=== PATIENT | female | born 1960 | race Caucasian/White ===

== ENCOUNTER → 2016-12-07 | Outpatient (CLI) | payer OTHER ==
--- NOTE | 2016-12-07 16:12 | KCIC ---
Examination: MRI of the right wrist and right hand HISTORY: History of progressing the right hand, wrist pain unable to straighten her due to arthritis COMPARISON: None available TECHNIQUE: Multiplanar, multisequence MR images of the right hand and right wrist was performed FINDINGS: The visualized flexor tendons, extensor tendons grossly appears unremarkable. The median nerve within the carpal tunnel and the ulnar nerve within Guyon's canal grossly appears unremarkable. There is mild bony fusion of the lunate and triquetrum. The alignment of the carpal bones grossly appears unremarkable. Severe degenerative changes identified in the first carpometacarpal joint with moderate associated osteophyte formation. Small cystic changes identified in the capitate, hamate bones dorsal osteophyte formation identified at lunate, capitate region. Moderate degenerative changes identified in the carpal joints Mild trabecular edema identified in the trapezium. The triangular fibrocartilage complex appears intact. There is minimal increased signal identified in the anterior portion of the scapholunate ligament, question age indeterminate. There is severe joint space loss identified in the second metacarpophalangeal joint with subchondral cystic changes. There is moderate to severe degenerative changes identified in the third metacarpophalangeal joints. Moderate size osteophyte formation identified in the second and third metacarpal heads. Mild joint space loss identified in the PIP, DIP joints of the digits. IMPRESSION: 1. Small osteophytes identified in the radial aspect of the head of the second and third metacarpals with severe joint space loss and degenerative changes identified at the second metacarpophalangeal joint and moderate degenerative changes identified at the third metacarpophalangeal joint. Differential includes severe osteoarthritis, other possibilities include hook like osteophytes seen in CPPD arthropathy or hemochromatosis arthropathy. Plain film radiographs are recommended. 2. Moderate degenerative changes identified in the first carpometacarpal joint and intercarpal joints. 3. Minimal increased signal identified in the anterior portion of the scapholunate ligament could be age indeterminate. If there is clinical suspicion of scapholunate ligament tear. Consider MR arthrogram. Electronically signed by: Goran Cullen MD (12/07/2016 4:09 PM) [id number]
--- NOTE | 2016-12-07 17:28 | KCIC ---
MRI of the lumbar spine without contrast 12/07/2016 CLINICAL HISTORY: Low back pain which radiates down both legs with numbness. TECHNIQUE: Unenhanced T1-weighted and T2-weighted sagittal and axial and inversion recovery sagittal images of the lumbar spine were obtained. FINDINGS: Minimal S-shaped curvature of the thoracolumbar spine is seen. Mild anterolisthesis of L4 in relation to L5 is noted. Degenerative signal changes are seen involving the L2-3, L3-4 L4-5 discs predominantly. Degenerative signal changes are seen within the marrow surrounding these discs. The conus medullaris is normal morphology, position, and signal characteristics. The L1-2 disc space there is a minimal generalized disc bulge. Degenerative changes are seen involving the facet joints bilaterally. These findings do not result in significant central spinal canal or neural foraminal stenosis. At the L2-3 disc space there is a mild generalized disc bulge. Degenerative changes are seen involving the facet joints bilaterally. There is mild to moderate ligamentum flavum hypertrophy bilaterally. These findings when combined do not result in significant central spinal canal or neural foraminal stenosis. At the L3-4 disc space there is a mild generalized disc bulge. Degenerative changes are seen involving the facet joints bilaterally. There is moderate ligamentum flavum hypertrophy bilaterally. These findings when combined result in mild central spinal canal stenosis. No neural foraminal stenosis is seen. At the L4-5 disc space there is a moderate generalized disc bulge. Degenerative changes are seen involving the facet joints bilaterally. There is moderate ligamentum flavum hypertrophy bilaterally. These findings when combined result in mild central spinal canal stenosis. No neural foraminal stenosis is seen. At the L5-S1 disc space there is a mild generalized disc bulge. This is eccentric to the right. Degenerative changes are seen involving the facet joints bilaterally. These findings when combined do not result in significant central spinal canal or neural foraminal stenosis. IMPRESSION: The changes of degenerative disc disease are seen throughout the lumbar spine. These findings result in mild central spinal canal stenosis at L3-4 and L4-5. No neural foraminal stenosis is seen. Electronically signed by: Norris Siegel MD (12/07/2016 5:25 PM) [id number]
== END | disposition home or self-care (01) ==
LOC: KCIC MRI 13:25
PROVIDERS: ATTEND Family Medicine
DX: M51.36 Other intervertebral disc degeneration, lumbar region (principal); M79.641 Pain in right hand; M25.531 Pain in right wrist; M48.06 Spinal stenosis, lumbar region
CPT/HCPCS: 72148; 73218; 73221